=== PATIENT | male | born 1990 | race Caucasian/White ===

== ENCOUNTER 2020-11-27 08:01 | Emergency (ER) | payer BC ==
[~2020-11-27] VITALS: Ht 182.9 cm; Wt 95.3 kg
[2020-11-27 08:09] VITALS: BP_SYST 111
[2020-11-27] MEDS ORDERED: KETOROLAC TROMETHAMINE 60 MG/2 ML VIAL IM ONE (08:30)
[2020-11-27 08:34] LABS: BASOPHILS % (AUTO) 0.6 % (0.0-2.0); EOSINOPHILS # (AUTO) 0.1 K/uL (0.0-0.4); EOSINOPHILS % (AUTO) 0.9 % (0.0-4.0); HEMATOCRIT 45.2 % (36-54); HEMOGLOBIN 15.5 g/dL (14.0-18.0); LYMPHOCYTES # (AUTO) 1.5 K/uL (1.0-5.5); LYMPHOCYTES % (AUTO) 20.9 % (20.5-51.5); MEAN CORPUSCULAR HEMOGLOBIN 30 pg (27-31); MEAN CORPUSCULAR HGB CONC 34 % (32-36); MEAN CORPUSCULAR VOLUME 89 fL (79.0-98.0); MONOCYTES # (AUTO) 0.4 K/uL (0.0-1.0); NEUTROPHILS # (AUTO) 5.2 K/uL (1.8-7.7); NEUTROPHILS % (AUTO) 72.6 % (40.0-70.0); PLATELET COUNT (AUTO) 220 K/uL (130-430); WHITE BLOOD COUNT (AUTO) 7.2 K/uL (4.8-10.8)
[2020-11-27 08:47] LABS: ANION GAP 9 (5-15); CALCIUM 9.1 mg/dL (8.4-11.0); CHLORIDE 98 mmol/L (98-107); CREATININE 1.06 mg/dL (0.55-1.30); GLUCOSE 101 mg/dL (70-99); POTASSIUM 3.8 mmol/L (3.5-5.1); SODIUM SERUM 136 mmol/L (136-145); UREA NITROGEN, BLOOD 22 mg/dL (8-21)
[2020-11-27 08:49] LABS: GFR AFRICAN AMERICAN 107 mL/min (>90)
[2020-11-27 08:53] LABS: ALANINE AMINOTRANSFERASE 79 U/L (12-78); ALBUMIN 4.2 g/dL (3.4-4.8); AMYLASE 63 U/L (0-100); ASPARTATE AMINOTRANSFERASE 65 U/L (10-37); LIPASE 213 U/L (73-393); TOTAL BILIRUBIN 0.5 mg/dL (0.0-1.0)
[2020-11-27 08:57] LABS: PROTHROMBIN TIME 10.4 SECS (9.5-12.5)
[2020-11-27 09:00] LABS: C-REACTIVE PROTEIN QUANT < 0.2 mg/dL (0-0.5)
[2020-11-27 09:17] LABS: BILIRUBIN,URINE NEGATIVE (NEGATIVE); BLOOD, URINE NEGATIVE (NEGATIVE); CLARITY/URINE CLEAR (CLEAR); COLOR,URINE YELLOW (YELLOW); GLUCOSE,URINE NEGATIVE (NEGATIVE); KETONES,URINE NEGATIVE (NEGATIVE); LEUKOCYTE ESTERASE ,URINE NEGATIVE (NEGATIVE); NITRITE, URINE NEGATIVE (NEGATIVE); PH,URINE 6.5 (5.0-8.0); PROTEIN URINE NEGATIVE (NEGATIVE); UROBILINOGEN,URINE 0.2 (0.2-1.0)
[2020-11-27] MEDS ORDERED: HYDR-3917 PO (10:29)
[2020-11-27] MEDS ORDERED: IBUP-1971 PO (10:29)
[2020-11-27 10:36] VITALS: BP_SYST 111
== END 2020-11-27 10:41 | disposition home or self-care (01) ==
LOC: SED 08:01
DX: M54.5 Low back pain (principal)
CPT/HCPCS: 36415; 74176; 76376; 80053; 81003; 82150; 83690; 85025; 85610; 85730; 86140; 96372; 99284; J1885